=== PATIENT | female | born 1940 | race Caucasian/White ===

== ENCOUNTER → 2023-10-12 11:21 | Outpatient (REF) | payer MEDICARE, BC, SELFPAY | LOC: HWRAD 11:21 | PROVIDERS: ATTENDING PHYSICIAN Orthopaedic Surgery Hand Surgery; FAMILY PHYSICIAN Family Medicine | DX: M19.019 Primary osteoarthritis, unspecified shoulder (principal) | CPT/HCPCS: 73200 ==

== ENCOUNTER 2023-11-08 08:20 | Inpatient (IN) | payer MEDICARE, BC, SELFPAY ==
--- NOTE | 2023-10-17 11:06 | CM ---
Patient is scheduled for an elective R Reverse TSA on 11/08/23. Spoke with patient prior to surgery via telephone. Patient had a L THR (2021) and R TKR (2013) at . Reintroduced role of Orthopedic Navigator. Patient reports that she lives alone in a
two story home. There are no steps to enter and a flight of steps to the second floor. There is a full bathroom on the entry level manufacturing engineer and patient may stay on the first floor. She currently functions independently. She has a rollator, cane, rolling
walker, hip kit, wheel chair, cpap and shower seat. She had VN services through VN. PCP is Dr. Heri Soni.
Discussed orthopedic program and post surgical plans. Reviewed anticipated length of stay and assistance that she may need at discharge. Explained that goal is for her to return home at discharge. Also reviewed MD follow up and transition to
outpatient therapy. Patient is in agreement with tentative plan. She states that she most likely will not have anyone staying with her but has a neighbor who can come over to help. Encouraged patient to see if her some can stay with her. She will
benefit from VN services. Options and PAC data reviewed; she selects VN.
Patient will complete online education.
Plan: Orthopedic Navigator will be involved in the care of patient after surgery and will reassess discharge needs at that time.
[2023-10-23 08:23] VITALS: BMI 35.5
--- NOTE | 2023-10-23 09:07 | HPS.HSE ---
Family Physician
-
Family Physician: Heri Soni
Chief Complaint
-
Advanced glenohumeral arthritis of the right shoulder.
History of Present Illness
The patient is an 82 year old female presenting today for advanced glenohumeral arthritis of the right shoulder. She previously underwent a right total knee arthro[place] [address] Som Shoemaker and a left total hip arthroplasty in
[address] Jigar Smith due to advanced osteoarthritis. She returns to [facility] today with complaints of significant right shoulder pain and instability secondary to her arthritis. She notes that her current symptoms greatly
interfere with her activities of daily living and are overall impacting her quality of life. She has tried and failed multiple conservative treatment measures in the past for her right shoulder symptoms. These conservative treatment measures include
physician supervised therapeutic exercises, activity modification, corticosteroid injections, medical management with Tylenol and Tramadol, and the application of ice and/or heat. A recent CT scan of the right upper extremity confirmed severe
glenohumeral osteoarthritic changes. She was determined to be in need of a right reverse total shoulder arthroplasty. She will also undergo a left shoulder cortisone injection at the time of her arthroplasty. She denies any current complaints today
such as chest pain, shortness of breath, palpitations, nausea, vomiting, diarrhea, lightheadedness, dizziness, cough, sore throat, or fever.
Medical History
Past Medical History
Past Medical History: Reports Other
Additional Past Medical History:
1. Osteoarthritis, status post right total knee arthroplasty, 2013, by Dr. Som Shoemaker and left total hip arthroplasty, 2021, by Dr. Jigar Smith.
2. Hyperlipidemia.
3. Right bundle branch block.
4. Mild aortic stenosis.
5. Mild-moderate aortic regurgitation.
6. Mild mitral regurgitation.
7. Mild-moderate tricuspid regurgitation.
8. Heart murmur associated with valvular disease.
9. Orthostatic hypotension after left total hip arthroplasty.
10. Obstructive sleep apnea, compliant with CPAP.
11. 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
12. GERD.
13. Hiatal hernia.
14. Foster's esophagus.
15. Diverticulosis.
16. Cholelithiasis, asymptomatic.
17. Nephrolithiasis, non-obstructive.
18. Chronic low back pain secondary to multilevel degenerative disc disease.
19. Obesity, BMI 35.4.
Past Surgical History: Reports Other
Additional Past Surgical History:
1. Left total hip arthroplasty, 2021, by Dr. Jigar Smith.
2. Right total knee arthroplasty, 2013, by Dr. Som Shoemaker.
3. Right knee arthroscopy.
4. Bilateral carpal tunnel release.
5. Bilateral thumb joint surgery x2.
6. Left bunionectomy.
Social History
Tobacco: Non-smoker
Alcohol: None
Personal:
Living: Alone (in a 2 story home. She reports that a friend and her daughter will both be helping her for a few days after her surgery. )
Family History
Family History: Not pertinent
Allergies / Home Medications
Allergy/Medication List:
Home medications:
1. Acetaminophen 500 mg p.o. twice a day.
2. Ascorbic acid 1000 mg p.o. daily.
3. Calcium, Magnesium, Vitamin D 1 tablet p.o. daily.
4. Centrum Silver 1 tablet p.o. daily.
5. Cyanocobalamin 5000 mcg sublingual daily.
6. Colace 100 mg p.o. at bedtime.
7. Glucosamine 2 capsules p.o. twice a day.
8. Vascepa 2 grams p.o. twice a day.
9. Pantoprazole 40 mg p.o. daily.
10. Probiotic 2 tablets p.o. daily.
11. Simvastatin 20 mg p.o. at bedtime.
12. Tramadol 50 mg p.o. twice a day.
13. PreserVision 1 tablet p.o. daily.
14. Vitamin E 1 capsule p.o. daily.
Allergies: Latex.
Review of Systems
-
A 12 point ROS was completed and negative except as noted: Yes
Physical Exam
Vital Signs
Blood pressure 128/59. Heart rate 65. Respirations 18. Pulse ox 95%.
Height 5 feet, 2 inches. Weight 87.9 kg. BMI 35.4.
Physical Exam
General: Well Developed, Well Nourished and No Apparent Distress
HEENT: NormoCephalic, Moist mucous membranes, Atraumatic and PERRLA
Respiratory: Clear
Cardiac: Regular Rhythm and Murmur
GI: Soft, Non Tender, Non Distended and Other (Obese. )
Musculoskeletal: Other (Bilateral shoulders: limited range of motion with pain in both extremities. Crepitation and weakness throughout. Passive range of motion she is about 100 degrees of forward flexion and abduction on the right and about 115 on
the left. )
Skin: Warm and Dry
Neuro: AO x 3 and Nonfocal/grossly intact
Laboratory Results
-
DIAGNOSTIC STUDIES as of 10/23/2023: White blood cell count 4.9. Hemoglobin 14.4. Platelet count 256,000. Sodium 136. Potassium 3.9. BUN 15. Creatinine 0.7. Glucose 191. Hemoglobin A1c 6.4. Calcium 9.7. AST 29. ALT 18. Albumin 4.4. MRSA screen
negative.
EKG provided by Cardiology.
Echocardiogram 01/11/2023: Normal left ventricular size and systolic function. No regional wall motion abnormalities are seen. LV ejection fraction is 65-70% by Rachel's method of discs. Mild concentric left ventricular hypertrophy. Normal right
ventricular size and function. Mildly thickened mitral valve leaflets with mitral annular calcification. There is adequate mitral leaflet excursion. Mild mitral regurgitation. Calcified, trileaflet aortic valve with peak and mean gradients of 26 and
15 mmHg, respectively. Estimated ALONZO is 1.6 cm2., using an LVOT of 2.0 cm. Mild aortic stenosis. Mild to moderate aortic regurgitation. Tricuspid valve opens normally with mild-moderate eccentric tricuspid regurgitation. Estimated pulmonary artery
pressure of 31 mmHg, assuming a right atrial pressure of 3 mmHg.
Impression/Plan
-
CLEARANCES:
1. Primary medical, Dr. Bela Cadet, cleared.
Primary medical phone number: [phone].
2. Cardiology, Dr. Darshan Bishop, cleared.
3. Dental waived.
IMPRESSION/PLAN:
1. Advanced glenohumeral arthritis of the right shoulder in need of a right reverse total shoulder arthroplasty with Dr. Vimal Reynolds of 11/08/2023. She will also undergo a left shoulder cortisone injection on this date. The benefits and risks of
the procedure have been explained to the patient. The patient understands these risks and wishes to proceed.
2. DVT prophylaxis - Aspirin with bilateral venous compression devices.
3. Orthostatic hypotension after left total hip arthroplasty: Orthostatic vital signs will be monitored during admission. She will be provided with intravenous fluids post-procedure and oral hydration will be highly encouraged. Midodrine will be
ordered if felt indicated.
Patient's phone number: [phone].
Patient's contact (Carline Linda - Daughter): [phone].
[2023-10-23 09:51] LABS: Hematocrit 42.6 % (37.0-47.0); Hemoglobin 14.4 g/dL (12.0-16.0); Mean Corp Hgb Conc. 33.8 g/dL (33.0-37.0); Mean Corpuscular Hgb 32.9 pg (27.0-31.0); Mean Corpuscular Volume 97.3 fL (81.0-99.0); Platelet Count 256 10^3/uL (130-400); Red Blood Cell Count 4.38 10^6/uL (4.20-5.40); Red Cell Dist. Width 11.4 % (11.5-14.5); White Blood Cell Count 4.9 10^3/uL (4.8-10.8)
[2023-10-23 11:25] LABS: ALT (SGPT) 18 U/L (0-35); AST (SGOT) 29 U/L (14-36); Albumin 4.4 g/dl (3.5-5.0); Alkaline Phosphatase 64 U/L (38-126); Blood Urea Nitrogen 15 mg/dl (7-17); Calcium 9.7 mg/dl (8.4-10.2); Carbon Dioxide 22 mmol/L (22-30); Chloride 104 mmol/L (98-107); Estimated Creatinine Clearance 65 ml/min; Glucose 191 mg/dl (70-99); Potassium 3.9 mmol/L (3.5-5.1); Sodium 136 mmol/L (135-145); Total Bilirubin 0.7 mg/dl (0.2-1.3); Total Protein 6.6 g/dl (6.3-8.2); eGFR > 60.00
[2023-10-23 12:15] LABS: Glycohemoglobin (HgbA1c) 6.4 % (4.0-5.6)
[2023-10-23 14:50] VITALS: BMI 35.5
[2023-11-08] VITALS (19 sets, daily range): BP systolic 119–145; BP diastolic 52–98; PULSE 100–109
[2023-11-08] MEDS: NORMOSOL-R 1000 IV ×2 (08:35→15:34)
[2023-11-08] MEDS: CELEBREX 200 MG PO (08:49)
[2023-11-08 13:05] LABS: Glucose - Point of Care 123 mg/dl (70-99)
[2023-11-08] MEDS: DILAUDID 0.25 MG IV ×2 (13:11→13:42)
--- NOTE | 2023-11-08 14:58 | W.PN.UPDATE ---
Update Note
Progress Note Update
Advanced glenohumeral OA of the R shoulder s/p R Reverse TSA and L shoulder cortisone injection w/ Dr Reynolds 11/08/23
DVT prophylaxis - ASA, b/l venous foot pumps
Orthostatic hypotension after left total hip arthroplasty - monitor orthostatics q8h
- IVF running
- Consider Midodrine
- Minimize opioids as able
Obstructive sleep apnea, compliant with CPAP - monitor O2
- IS
- Resume CPAP HS
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
- SSI AC
- Consider Gabapentin or Lyrica for neuropathic pain
GERD, Hiatal hernia, and Foster's esophagus - continue Protonix
Osteoarthritis, status post R TKA, 2013, by Dr Shoemaker and L VLAD, 2021, by Dr Smith
Hyperlipidemia
Right bundle branch block
Mild aortic stenosis
Mild-moderate aortic regurgitation
Mild mitral regurgitation
Mild-moderate tricuspid regurgitation
Heart murmur associated with valvular disease
Diverticulosis
Cholelithiasis, asymptomatic
Nephrolithiasis, non-obstructive
Chronic low back pain secondary to multilevel degenerative disc disease
Obesity, BMI 35.4
--- NOTE | 2023-11-08 15:39 | SUR.PHASEI ---
patient comfortable in pacu - awaiting available ortho room. vss, no pain, sleeps if undisturbed, nasal O2 on and with that - patient's sats remain 92- 95%. Patient does have CPAP with her.
--- NOTE | 2023-11-08 16:26 | PTCARENOTE ---
Pt arrived to 2S in bed. Full assessment completed. IVF infusing per order. RUE NWB maintained in sling, pt verbalized understanding. Pt with urge to urinate, assisted to the bathroom via nursing staff, gait steady. R thumb numb, neurovascular
assessment otherwise WDL. Bed locked and in the lowest position, safety maintained. Oriented to room and call ventura.
[2023-11-08 16:37] LABS: Glucose - Point of Care 164 mg/dl (70-99)
[2023-11-08] MEDS: FLORASTOR 250 MG PO (17:04)
[2023-11-08] MEDS: ASPIRIN 325 MG PO (17:04)
[2023-11-08] MEDS: VITAMIN C 1000 MG PO (17:04)
[2023-11-08] MEDS: TYLENOL 650 MG PO ×3 (17:04→23:19)
[2023-11-08] MEDS: PROTONIX 40 MG PO (17:05)
[2023-11-08] MEDS: ANCEF 5 IV (17:05)
[2023-11-08] MEDS: NOVOLOG FLEXPEN-MODERATE RESISTANCE 1 UNITS SC (17:06)
[2023-11-08] MEDS: SENOKOT 17.1999999999999993 MG PO (20:30)
[2023-11-08] MEDS: COLACE 100 MG PO (20:30)
[2023-11-08] MEDS: BACTROBAN 2% OINTMENT 1 APPLIC NASAL (20:31)
[2023-11-08] MEDS: LIPITOR 10 MG PO (21:06)
[2023-11-08 21:35] LABS: Glucose - Point of Care 180 mg/dl (70-99)
[2023-11-09 00:24] VITALS: BP 129/67; BP 147/80; BP 147/89; PULSE 111; PULSE 83; PULSE 97
[2023-11-09] MEDS: ANCEF 5 IV (01:39)
[2023-11-09 03:00] VITALS: BP 132/69
[2023-11-09] MEDS: TYLENOL 650 MG PO ×3 (04:13→12:04)
[2023-11-09 08:00] VITALS: BMI 35.5
[2023-11-09] MEDS: SENOKOT 17.1999999999999993 MG PO (08:04)
[2023-11-09] MEDS: PROTONIX 40 MG PO (08:04)
[2023-11-09] MEDS: ASPIRIN 325 MG PO (08:04)
[2023-11-09] MEDS: BACTROBAN 2% OINTMENT 1 APPLIC NASAL (08:04)
[2023-11-09] MEDS: FLORASTOR 250 MG PO (08:04)
[2023-11-09] MEDS: COLACE 100 MG PO (08:04)
[2023-11-09] MEDS: VITAMIN C 1000 MG PO (08:04)
[2023-11-09] MEDS: CELEBREX 200 MG PO (08:13)
[2023-11-09 08:35] LABS: Glucose - Point of Care 129 mg/dl (70-99)
[2023-11-09 08:39] VITALS: BP 129/70; BP 141/52; PULSE 72; PULSE 82
[2023-11-09] MEDS: NOVOLOG FLEXPEN-MODERATE RESISTANCE SC ×2 (08:52→11:59)
--- NOTE | 2023-11-09 09:05 | CM ---
Addendum entered by Shawna Awad 11/09/23 11:54:
Patient did well in therapy. Her daughter was present for part of her OT session. Discharge plans were reviewed and neither have concerns about patient going home.
Original Note:
Reviewed chart and held rounds with OT and nursing. Patient admitted as planned for elective R Reverse TSA. Met with patient at bedside. Confirmed information previously obtained for assessment. Also discussed discharge plans. The plan is for
patient to return home at discharge. Her daughter will be staying with her tonight and then a friend will stay with her for a few days. Reviewed VN services including start of care (tentatively 11/09), services to be ordered (OT, SN, FIRER LOW PRESSURE) and
frequency/duration of services. Options list provided and PAC data reviewed. Patient selects VN.
VN referral was completed and sent to [facility] through [employer] with request for start of care on 11/09. Confirmation received of their ability to accept case. license clerk to fax discharge instructions to VN when complete.
Patient will use [facility] for discharge prescriptions.
[2023-11-09] MEDS: ROXICODONE 5 MG PO (09:42)
--- NOTE | 2023-11-09 10:34 | W.PN.ORTHO ---
Today's Communication / Plan
-
Await OT recs.
D/c later today if remaining clinically stable.
Assessment
.
Distal Motor Intact: Yes
Dressing:
Clean, dry and intact.
Assessment:
Advanced glenohumeral OA of the R shoulder s/p R Reverse TSA and L shoulder cortisone injection w/ Dr Reynolds 11/08/23
DVT prophylaxis - ASA, b/l venous foot pumps
Orthostatic hypotension after left total hip arthroplasty - orthostatics q8h stable
- s/p IVF
- Thankfully no indication for Midodrine
- Continue to minimize opioids as able
Obstructive sleep apnea, compliant with CPAP - O2 stable on RA
- IS
- Resumed CPAP HS
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
- Consider Gabapentin or Lyrica for neuropathic pain
GERD, Hiatal hernia, and Foster's esophagus - continue Protonix
Osteoarthritis, status post R TKA, 2013, by Dr Shoemaker and L VLAD, 2021, by Dr Smith
Hyperlipidemia
Right bundle branch block
Mild aortic stenosis
Mild-moderate aortic regurgitation
Mild mitral regurgitation
Mild-moderate tricuspid regurgitation
Heart murmur associated with valvular disease
Diverticulosis
Cholelithiasis, asymptomatic
Nephrolithiasis, non-obstructive
Chronic low back pain secondary to multilevel degenerative disc disease
Obesity, BMI 35.4
Plan
.
Surgery / Date: R Reverse TSA w/ Dr Reynolds 11/08/23
DVT Prophylaxis: Aspirin
Activity:
Out of bed.
PT/OT
Discharge Plan: Home w/ VN
Subjective
.
.:
Patient resting comfortably in her chair.
R shoulder pain minimal w/ current pain meds.
Denies any new significant complaints.
Vital Signs and Labs
.
Vital Signs and Labs:
Lab Results
10/23/23 08:28
10/23/23 08:28
Temp Pulse Resp BP Pulse Ox
97.9 F 72 18 129/70 93
11/09/23 08:39 11/09/23 08:39 11/09/23 08:39 11/09/23 08:39 11/09/23 08:39
Non-invasive Hgb result: 15.5
Physical Exam
-
HEENT: No pallor, cyanosis, or jaundice. Throat clear.
NECK: Supple. No JVD.
RESPIRATORY: Lungs clear to auscultation.
CVS: S1, S2 normal. RRR.�
ABDOMEN: Soft, non-tender. No distension. Obese.
EXTREMITIES: + RUE sling. Able to wiggle fingers b/l. Good boiler blower b/l. Strength equal, no calf pain with palpation/dorsiflexion. Calves soft.
DATA ENTRY ANALYST: AOx3. No focal deficits. shirt folding machine operator grossly intact
[2023-11-09] MEDS: VITAMIN B-12 5000 MCG PO (10:58)
[2023-11-09 11:44] LABS: Glucose - Point of Care 115 mg/dl (70-99)
[2023-11-09 11:51] VITALS: BP 134/65; PULSE 71; O2SAT 94
--- NOTE | 2023-11-09 12:37 | W.DS.TRANS ---
DC Summary - [place]
-
Discharge Instructions:
Discharge Diagnosis/Procedures Advanced glenohumeral OA of the R shoulder s/p R
Reverse TSA and L shoulder cortisone injection
w/ Dr Reynolds 11/08/23
Diet Diabetic, Carb Controlled
Activity As tolerated
Additional Activity Non-weightbearing right upper extremity
Driving Restrictions Not until seen by your Dr
Bathing Restrictions OK to shower in 72 hours
Other Services VN,OT
Instructions:
Stand-Alone Forms: Total Shoulder Replacement D/C
Changes to Home Medications: Yes
Discharge Medications:
DC Medications w/original date entered in [employer]
ascorbic acid (vitamin C) 500 mg tablet (Vitamin C) 1,000 mg PO DAILY Supplement ##0 11/19/13
okpmbwns-osg-orels acid 0.4 mg-lycopene 300 mcg-lutein 250 mcg tablet (Centrum Silver) 1 ea PO DAILY Supplement ##0 11/19/13
Bacillus coagulans 2 billion cell-vitamin D3 5 mcg chewable tablet (Probiotic (with Vitamin D3)) 2 ea PO DAILY Gastrointestinal issue 06/04/21
Calcium Magnesium + D 1 tab PO DAILY 10/18/23
cyanocobalamin (vitamin B-12) 5,000 mcg sublingual tablet (Vitamin B-12) 5,000 mcg sublingual DAILY 10/18/23
xddnjslhuzm-heg-lvlieduxp-vitC capsule (Glucosamine Complex-MSM capsule) 2 cap PO BID 10/18/23
icosapent ethyl 1 gram capsule (Vascepa) 2 g PO BID 10/18/23
pantoprazole 40 mg tablet,delayed release 40 mg PO DAILY 10/18/23
simvastatin 20 mg tablet 20 mg PO HS 10/18/23
vit C 250 mg-vit E 90 mg-zinc 40 mg-copper 1 eg-cyrzco-dgpqjd capsule (PreserVision AREDS-2) 1 tab PO DAILY 10/18/23
vitamin E 1 cap PO DAILY 10/18/23
mupirocin 2 % topical ointment 1 applic intranasal BID #1 tube 10/23/23
acetaminophen 500 mg tablet (Tylenol Extra Strength) 1,000 mg (2 x 500 mg) PO Q6H #60 tabs 11/09/23
aspirin 325 mg tablet 325 mg PO DAILY #30 tabs 11/09/23
celecoxib 200 mg capsule 200 mg PO DAILY #14 caps 11/09/23
docusate sodium 100 mg capsule 100 mg PO BID #30 caps 11/09/23
doxycycline monohydrate 100 mg capsule 100 mg PO BID #7 caps 11/09/23
ondansetron HCl 4 mg tablet 4 mg PO Q6H PRN nausea and vomiting #30 tabs 11/09/23
oxycodone 5 mg tablet 5 - 10 mg (1 - 2 x 5 mg) PO Q6H PRN moderate-severe pain #30 tabs 11/09/23
sennosides 8.6 mg tablet (Senna Laxative) 17.2 mg (2 x 8.6 mg) PO BID #30 tabs 11/09/23
Home Medication Changes
acetaminophen 500 mg tablet (Tylenol Extra Strength) 1,000 mg (2 x 500 mg) PO Q6H #60 tabs 11/09/23
aspirin 325 mg tablet 325 mg PO DAILY #30 tabs 11/09/23
celecoxib 200 mg capsule 200 mg PO DAILY #14 caps 11/09/23
docusate sodium 100 mg capsule 100 mg PO BID #30 caps 11/09/23
doxycycline monohydrate 100 mg capsule 100 mg PO BID #7 caps 11/09/23
ondansetron HCl 4 mg tablet 4 mg PO Q6H PRN nausea and vomiting #30 tabs 11/09/23
oxycodone 5 mg tablet 5 - 10 mg (1 - 2 x 5 mg) PO Q6H PRN moderate-severe pain #30 tabs 11/09/23
sennosides 8.6 mg tablet (Senna Laxative) 17.2 mg (2 x 8.6 mg) PO BID #30 tabs 11/09/23
Pending Results: No
[2023-11-09 14:04] VITALS: BP 127/65
== END 2023-11-09 14:24 | disposition home health service (06) | DRG 483 ==
LOC: 2 SOUTH 08:20
PROVIDERS: ADMITTING PHYSICIAN Orthopaedic Surgery Hand Surgery; FAMILY PHYSICIAN Family Medicine
PROC: 0RPJ0JZ Removal of Synthetic Substitute from Right Shoulder Joint, Open Approach (ICD-10-PCS; 2023-11-08)
PROC: 3E0U33Z Introduction of Anti-inflammatory into Joints, Percutaneous Approach (ICD-10-PCS; 2023-11-08)
PROC: 0RRJ0JZ Replacement of Right Shoulder Joint with Synthetic Substitute, Open Approach (ICD-10-PCS; 2023-11-08)
DX: M19.011 Primary osteoarthritis, right shoulder (principal); I95.1 Orthostatic hypotension; Z96.642 Presence of left artificial hip joint; G47.33 Obstructive sleep apnea (adult) (pediatric); E66.9 Obesity, unspecified; Z68.35 Body mass index [BMI] 35.0-35.9, adult
CPT/HCPCS: 36415; 73020; 80053; 82962; 83036; 85027; 87070; 97110; 97167; 97535; C1713; C1776

== ENCOUNTER 2023-12-18 16:03 | Outpatient (RCR) | payer MEDICARE, BC, SELFPAY | END 2023-12-18 23:59 | disposition home or self-care (01) | LOC: RPT 16:03 | PROVIDERS: ATTENDING PHYSICIAN Physician Assistant Surgical; FAMILY PHYSICIAN Family Medicine | DX: Z47.1 Aftercare following joint replacement surgery (principal); Z96.611 Presence of right artificial shoulder joint; M25.511 Pain in right shoulder; Z73.6 Limitation of activities due to disability | CPT/HCPCS: 97010; 97110; 97140; 97162 ==

== ENCOUNTER → 2024-01-19 16:17 | Outpatient (REF) | payer MEDICARE, BC, SELFPAY | LOC: RAD 16:17 | PROVIDERS: ATTENDING PHYSICIAN Podiatrist Foot & Ankle Surgery; FAMILY PHYSICIAN Family Medicine | DX: M19.071 Primary osteoarthritis, right ankle and foot (principal); M14.672 Charcot's joint, left ankle and foot; M19.072 Primary osteoarthritis, left ankle and foot; M14.671 Charcot's joint, right ankle and foot | CPT/HCPCS: 73630 ==

== ENCOUNTER 2024-01-23 15:00 | Outpatient (RCR) | payer MEDICARE, BC, SELFPAY | END 2024-01-23 23:59 | disposition home or self-care (01) | LOC: RPT 15:00 | PROVIDERS: ATTENDING PHYSICIAN Physician Assistant Surgical; FAMILY PHYSICIAN Family Medicine | DX: Z47.1 Aftercare following joint replacement surgery (principal); Z96.611 Presence of right artificial shoulder joint; M25.511 Pain in right shoulder; Z73.6 Limitation of activities due to disability | CPT/HCPCS: 97010; 97110; 97140 ==

== ENCOUNTER 2024-02-23 12:56 | Outpatient (RCR) | payer MEDICARE, BC, SELFPAY | END 2024-02-23 23:59 | disposition home or self-care (01) | LOC: RPT 12:56 | PROVIDERS: ATTENDING PHYSICIAN Physician Assistant Surgical; FAMILY PHYSICIAN Family Medicine | DX: Z47.1 Aftercare following joint replacement surgery (principal); Z96.611 Presence of right artificial shoulder joint; M25.511 Pain in right shoulder; Z73.6 Limitation of activities due to disability | CPT/HCPCS: 97010; 97110; 97112; 97140 ==

== ENCOUNTER 2024-03-21 13:49 | Outpatient (RCR) | payer MEDICARE, BC, SELFPAY | END 2024-03-21 23:59 | disposition home or self-care (01) | LOC: RPT 13:49 | PROVIDERS: ATTENDING PHYSICIAN Physician Assistant Surgical; FAMILY PHYSICIAN Family Medicine | DX: Z47.1 Aftercare following joint replacement surgery (principal); M25.511 Pain in right shoulder; Z73.6 Limitation of activities due to disability; Z96.611 Presence of right artificial shoulder joint | CPT/HCPCS: 97010; 97110; 97112; 97530 ==

== ENCOUNTER 2024-06-24 14:24 | Outpatient (RCR) | payer MEDICARE, BC, SELFPAY | END 2024-06-24 23:59 | disposition home or self-care (01) | LOC: RPT 14:24 | PROVIDERS: ATTENDING PHYSICIAN Podiatrist Foot & Ankle Surgery; FAMILY PHYSICIAN Family Medicine | DX: M25.571 Pain in right ankle and joints of right foot (principal); M67.971 Unspecified disorder of synovium and tendon, right ankle and foot; M19.071 Primary osteoarthritis, right ankle and foot; R26.89 Other abnormalities of gait and mobility; Z73.6 Limitation of activities due to disability; R26.2 Difficulty in walking, not elsewhere classified; M25.572 Pain in left ankle and joints of left foot | CPT/HCPCS: 97010; 97110; 97140; 97162 ==

== ENCOUNTER → 2024-07-18 15:40 | Outpatient (REF) | payer MEDICARE, BC, SELFPAY | LOC: HWRAD 15:40 | PROVIDERS: ATTENDING PHYSICIAN Podiatrist Foot & Ankle Surgery; FAMILY PHYSICIAN Family Medicine | DX: M19.071 Primary osteoarthritis, right ankle and foot (principal); M19.072 Primary osteoarthritis, left ankle and foot | CPT/HCPCS: 73610 ==

== ENCOUNTER 2024-07-22 14:15 | Outpatient (RCR) | payer MEDICARE, BC, SELFPAY | END 2024-07-22 23:59 | disposition home or self-care (01) | LOC: RPT 14:15 | PROVIDERS: ATTENDING PHYSICIAN Podiatrist Foot & Ankle Surgery; FAMILY PHYSICIAN Family Medicine | DX: M25.571 Pain in right ankle and joints of right foot (principal); M67.971 Unspecified disorder of synovium and tendon, right ankle and foot; M19.071 Primary osteoarthritis, right ankle and foot; R26.89 Other abnormalities of gait and mobility; Z73.6 Limitation of activities due to disability; R26.2 Difficulty in walking, not elsewhere classified; M25.572 Pain in left ankle and joints of left foot | CPT/HCPCS: 73610; 97110; 97112; 97140 ==

== ENCOUNTER 2024-07-30 15:03 | Outpatient (RCR) | payer MEDICARE, BC, SELFPAY | END 2024-07-31 06:42 | disposition home or self-care (01) | LOC: RPT 15:03 | PROVIDERS: ATTENDING PHYSICIAN Podiatrist Foot & Ankle Surgery; FAMILY PHYSICIAN Family Medicine | DX: M25.571 Pain in right ankle and joints of right foot (principal); M67.971 Unspecified disorder of synovium and tendon, right ankle and foot; M19.071 Primary osteoarthritis, right ankle and foot; R26.89 Other abnormalities of gait and mobility; Z73.6 Limitation of activities due to disability; R26.2 Difficulty in walking, not elsewhere classified; M25.572 Pain in left ankle and joints of left foot | CPT/HCPCS: 97010; 97110; 97140 ==

== ENCOUNTER → 2025-02-17 11:34 | Outpatient (REF) | payer MEDICARE, BC, SELFPAY | LOC: HWRCS 11:34 | PROVIDERS: ATTENDING PHYSICIAN Internal Medicine Cardiovascular Disease; FAMILY PHYSICIAN Family Medicine | DX: I25.10 Atherosclerotic heart disease of native coronary artery without angina pectoris (principal); R06.09 Other forms of dyspnea; I35.0 Nonrheumatic aortic (valve) stenosis | CPT/HCPCS: 93306 ==

== ENCOUNTER → 2025-03-28 13:38 | Outpatient (REF) | payer MEDICARE, BC, SELFPAY | LOC: HWRAD 13:38 | PROVIDERS: ATTENDING PHYSICIAN Family Medicine | DX: R42 Dizziness and giddiness (principal) | CPT/HCPCS: 70450 ==

== ENCOUNTER → 2025-04-17 07:35 | Outpatient (REF) | payer MEDICARE, BC, SELFPAY | LOC: MRI 07:35 | PROVIDERS: ATTENDING PHYSICIAN Family Medicine | DX: R26.9 Unspecified abnormalities of gait and mobility (principal); R41.3 Other amnesia | CPT/HCPCS: 70553; A9575 ==

== ENCOUNTER → 2025-04-25 13:46 | Outpatient (REF) | payer MEDICARE, BC, SELFPAY | LOC: HWRAD 13:46 | PROVIDERS: ATTENDING PHYSICIAN Orthopaedic Surgery Hand Surgery; FAMILY PHYSICIAN Family Medicine | DX: M19.012 Primary osteoarthritis, left shoulder (principal) | CPT/HCPCS: 73200 ==

== ENCOUNTER 2025-04-29 09:27 | Emergency (ER) | payer MEDICARE, BC, SELFPAY ==
[2025-04-29 09:34] VITALS: BP 138/89
--- NOTE | 2025-04-29 09:52 | ED.GENMED ---
History of Present Illness
General
Chief Complaint: Eye Problems
Source: patient
Exam Limitations: none
Time Seen by Provider: 04/29/25 09:45
Nursing documentation reviewed up to this point in time: agreed with
History of Present Illness
History of Present Illness:
84-year-old female with a past medical history as noted presents to the ER for evaluation of right eye pain. Patient reports that this morning she woke up with pain in the right eye and has been constant since that time. She reports sharp pains in
the eyeball itself as well as in the eyelids. She says that she has had increased tearing/watering of the eye. She denies any loss of vision or blurry vision. She denies any trauma to the eye or injury. She denies any other acute complaints; no
symptoms on the left side. She says she has never had similar symptoms in the past.
Past History
Past History
ED Past Medical History: GERD (Hiatal hernia), Hypercholesterolemia, Other (Chronic low back pain/osteoarthritis) and Other (Obstructive sleep apnea)
ED Past Surgical History: Orthopedic (Right total knee replacement 2013, bilateral thumb joint repair, bunionectomy, carpal tunnel release)
Social History
Tobacco: Non-smoker
Alcohol: Occasional
Personal:
Living: with family
Employment: Retired
Family History
Family History: Other (Noncontributory)
Review of Systems
Review of Systems
All Other Systems: ROS reviewed and negative except as documented in HPI and ROS
Constitutional: Denies fever
EENT: Reports other (Pain and tearing in the right eye)
Neurological: Denies headache
Phy Exam
Physical Exam
Physical Exam:
General: Awake, alert, sitting in bed with her right eye closed, nontoxic appearing
Head: Normocephalic, atraumatic
Eyes: Extraocular movements are intact; no foreign body noted; visual acuity: 20/20 left; 20/160 noted on right (patient says that she has a lot of blurriness/tearing which limits assessment); 20/20 both
RIGHT: Conjunctival injection with significant tearing but no discharge noted; pupil is approximately 4 mm and reactive to light, no hyphema or hypopyon; on fluorescein exam patient has central corneal abrasion but no dendritic lesions; negative
Alex sign; eye pressures on the right
LEFT: Conjunctiva normal, pupil is approximately 4 mm and reactive to light, no hyphema or hypopyon; on fluorescein exam patient has no abrasions or dendritic lesions; eye pressures on the left
Throat: Airway intact, handling secretions
Neck: Trachea midline, supple without meningismus
Lungs: Breathing comfortably with no distress, no tachypnea or hypoxia
Heart: Regular rate
Extremities: Warm and well-perfused
Scores
Heart Failure Risk
Heart Failure Risk Score: Not Applicable
Heart Score for Chest Pain Patients
STEMI patient?: Not applicable
Withdrawal Assessment of Alcohol
Withdrawal Assessment Completed?: Not applicable
Course
Orders/Labs/Results
Orders:
Orders
04/29/25 09:46
Visual Acuity- Treatment ONCE
04/29/25 10:20
Ofloxacin [Ocuflox] See Dose Instructions OPHTH ONCE ONE
Vital Signs
Initial and Last Documented VS:
Initial Vital Signs
Temp Pulse Resp BP Pulse Ox
36.8 C 83 16 138/89 97
04/29/25 09:34 04/29/25 09:34 04/29/25 09:34 04/29/25 09:34 04/29/25 09:34
Last Documented Vital Signs
Temp Pulse Resp BP Pulse Ox
36.8 C 64 18 121/70 93
04/29/25 10:14 04/29/25 10:14 04/29/25 10:14 04/29/25 10:14 04/29/25 10:14
MDM/Problems Addressed
Differential Diagnosis Includes:
Shingles, corneal abrasion, conjunctivitis, uveitis, glaucoma
MDM/Problems Addressed:
84-year-old female presents with right eye pain and tearing without vision loss that started this morning when she woke up. Vitals and exam are as above. She has a large corneal abrasion on the right eye, no foreign body noted. She may have
unintentionally poked herself while sleeping. She does not wear contacts or glasses. Plan to treat with antibiotic drops, lubricating drops. She will need to see ophthalmology on an outpatient basis�she is supposed to be scheduled for surgery
with Dr. Reynolds to have her shoulder replaced this week. Advised her to inform surgeon and anesthesiologist about her corneal abrasion. Discussed with ophthalmology�she usually sees Dr. Metcalf, they can see her in the office at 2 PM today.
Stable for discharge.
*Pulse Oximetry
SaO2: 97
Oxygen Mode of Delivery: Room air
Patient hypoxic: no (97%)
*Critical Care Note
Total Time (30-74mins, 75-104mins- exclusive of procedures): Not Applicable
Data Reviewed
Source: patient
ED Attending Note
-
Portions of this chart may have been created with voice recognition software.� Occasional wrong word or��sound alike� substitutions may have occurred due to the inherent limitations of voice recognition software.
Discharge Plan
Departure
Patient Disposition: Home (Routine Discharge)
Date of Disposition: 04/29/25
Time of Disposition: 12:13
Patient with high blood pressure during this ER visit?: No
Discharge Problem:
Corneal abrasion
Instructions: Corneal Abrasion (DC)
Prescriptions:
New
ofloxacin 0.3 % drops
2 drp ophthalmic (eye) QID 5 Days Qty: 10 0RF
artificial tear(dchdq-szg-ylm) 0.1-0.3-0.2 % drops
1 drp ophthalmic (eye) Q1H PRN (Reason: dry eyes) Qty: 15 0RF
No Action
ascorbic acid (vitamin C) [Vitamin C] 500 MG tablet
1,000 mg PO DAILY Qty: 0
Centrum Silver 1 EACH tablet
1 ea PO DAILY Qty: 0
pantoprazole 40 mg Tablet,Delayed Release (Dr/Ec)
40 mg PO DAILY
simvastatin 20 mg Tablet
20 mg PO HS
cyanocobalamin (vitamin B-12) [Vitamin B-12] 5,000 mcg Tablet, Sublingual
5,000 mcg SUBLINGUAL DAILY
PreserVision AREDS-2 250-90-40-1 mg Capsule
1 tab PO DAILY
Calcium Magnesium + D
1 tab PO DAILY
sennosides-docusate sodium [Stool Softener-Laxative] 8.6-50 mg Tablet
1 tab-cap PO HS
acetaminophen [Tylenol Extra Strength] 500 mg tablet
500 - 1,000 mg PO BID
valacyclovir [Valtrex] 500 mg Tablet
500 mg PO DAILY
coenzyme Q10 [CoQ-10] 100 mg Capsule
200 mg PO DAILY
Daily Probiotic 2.5 billion cell Capsule
1 cap PO DAILY
sfijkjvdbgg-vakskdyol-zbm C-Mn [Glucosamine Complex] 500-400 mg Capsule
2 cap PO BID
icosapent ethyl [Vascepa] 1 gram Capsule
2 g PO BID
vitamin E (dl, acetate) 180 mg (400 unit) Capsule
180 mg PO DAILY
oxycodone 5 mg tablet
5 - 10 mg PO Q6H PRN (Reason: moderate-severe pain) Qty: 30 0RF
Rx Instructions:
1 tab for moderate pain, 2 if severe.
Dx total joint.
celecoxib [Celebrex] 200 mg capsule
200 mg PO DAILY Qty: 14 0RF
Rx Instructions:
Take with food post-surgery.
Do NOT take within 2 hours of Aspirin.
doxycycline monohydrate 100 mg capsule
100 mg PO BID Qty: 7 0RF
Rx Instructions:
Start night of discharge and continue twice a day until finished.
Take with probiotic.
ondansetron HCl 4 mg tablet
4 mg PO Q6H PRN (Reason: nausea and vomiting) Qty: 30 0RF
mupirocin 2 % ointment
1 applic intranasal BID Qty: 1 0RF
Referrals:
Julito Villagomez MD [Active, Ophthalmology] - 04/29/25 2:00 pm
Heri Soni MD [Family Provider, Family Practice]
Activity Restrictions/Additional Instructions:
Thank you for visiting the Emergency Department at [facility].
1. Please schedule a follow up appointment as directed. Call first thing tomorrow morning to make an appointment.
2. If indicated, please take your medications as instructed and indicated on discharge paperwork.
3. If any of your symptoms do not improve, or persist, or become more severe within 6-12 hours, please return to the emergency department for further care.
4. Please return to the emergency department if you develop a headache, neck pain/stiffness, fever greater than 100.4F, chest pain, shortness of breath, persistent nausea, vomiting, slurred speech, difficulty walking, numbness/tingling, weakness,
signs of infection or any other symptoms that are worrisome to you.
Please call [phone] if you have any questions.
Interventions
Interventions:
*Risk Screen - Suicide Last Done: 04/29/25 09:34
*General Assessment Last Done: 04/29/25 10:08
*Neglect/Abuse Screening Last Done: 04/29/25 09:34
*ED- Fall Risk Assessment Last Done: 04/29/25 10:08
*ED COVID-19 Vaccine History Last Done: 04/29/25 10:08
*ED Influenza Vaccine History Last Done: 04/29/25 10:08
Discharge Date and Time
Print Language: CAMBODIAN
[2025-04-29 10:08] VITALS: BMI 35.2
[2025-04-29 10:14] VITALS: BP 121/70
[2025-04-29] MEDS: OCUFLOX 2 DROP OPHTH (10:37)
[2025-04-29 12:00] VITALS: BP 125/70
== END 2025-04-29 12:29 | disposition home or self-care (01) ==
LOC: EMR 09:27
PROVIDERS: EMERGENCY PHYSICIAN Emergency Medicine; FAMILY PHYSICIAN Family Medicine
DX: S05.01XA Injury of conjunctiva and corneal abrasion without foreign body, right eye, initial encounter (principal); X58.XXXA Exposure to other specified factors, initial encounter; E78.00 Pure hypercholesterolemia, unspecified; G47.33 Obstructive sleep apnea (adult) (pediatric); K21.9 Gastro-esophageal reflux disease without esophagitis; K44.9 Diaphragmatic hernia without obstruction or gangrene; M47.816 Spondylosis without myelopathy or radiculopathy, lumbar region; Z96.651 Presence of right artificial knee joint
CPT/HCPCS: 99283

== ENCOUNTER 2025-04-30 06:12 | Day surgery (SDC) | payer MEDICARE, BC, SELFPAY ==
--- NOTE | 2025-04-14 09:50 | CM ---
Demographics: confirmed
Living situation: alone, daughter will be driving.
Support Person Post Operatively: daughter
History of
VN: no
SNF: no
Outpatient: [facility]
Has patient purchased required equipment: yes
PCP: Zachariah
Pharmacy: [facility]
Post Operative Discharge Plan: Home with daughter.
[2025-04-22 14:20] VITALS: BMI 34.0
[2025-04-22 14:37] LABS: Hematocrit 43.1 % (37.0-47.0); Hemoglobin 14.9 g/dL (12.0-16.0); Mean Corp Hgb Conc. 34.6 g/dL (33.0-37.0); Mean Corpuscular Volume 98.9 fL (81.0-99.0); Platelet Count 273 10^3/uL (130-400); Red Cell Dist. Width 11.8 % (11.5-14.5)
[2025-04-22 15:06] LABS: ALT (SGPT) 19 U/L (0-35); AST (SGOT) 26 U/L (14-36); Albumin 4.4 g/dl (3.5-5.0); Alkaline Phosphatase 58 U/L (38-126); Blood Urea Nitrogen 9 mg/dl (7-17); Calcium 9.9 mg/dl (8.4-10.2); Carbon Dioxide 30 mmol/L (22-30); Chloride 104 mmol/L (98-107); Estimated Creatinine Clearance 54 ml/min; Glucose 211 mg/dl (70-99); Potassium 4.1 mmol/L (3.5-5.1); Sodium 143 mmol/L (135-145); Total Protein 6.8 g/dl (6.3-8.2); eGFR > 60.00
[2025-04-22 17:41] VITALS: BMI 34.0
[2025-04-23 09:28] LABS: Glycohemoglobin (HgbA1c) 6.2 % (4.0-5.9)
[2025-04-30] VITALS (7 sets, daily range): BP systolic 120–152; BP diastolic 63–71
--- NOTE | 2025-04-30 08:08 | W.DS.TRANS ---
DC Summary - [employer]
-
Discharge Instructions:
Discharge Diagnosis/Procedures L shoulder OA s/p L Reverse TSA w/ Dr Reynolds 11
Diet Regular
Additional Diets Adequate hydration, minimize opioids, and wear
TEDs stockings to prevent low blood pressure/
dizziness.
Activity As tolerated
Additional Activity Non-weightbearing left upper extremity
Driving Restrictions Not until seen by your Dr
Bathing Restrictions OK to shower in 72 hours
Wound Care Leave dressing on until seen by surgeon's office
for follow-up.
Instructions:
Stand-Alone Forms: SDS Total Shoulder D/C Inst.
Changes to Home Medications: Yes
Discharge Medications:
DC Medications w/original date entered in [employer]
ascorbic acid (vitamin C) 500 mg tablet (Vitamin C) 1,000 mg PO DAILY Supplement ##0 11/19/13
bwguaxmr-lqk-gdjqo acid 0.4 mg-lycopene 300 mcg-lutein 250 mcg tablet (Centrum Silver) 1 ea PO DAILY Supplement ##0 11/19/13
Held on 04/30/25. Instructions: Resume on 05/08/25.
Calcium Magnesium + D 1 tab PO DAILY 10/18/23
cyanocobalamin (vitamin B-12) 5,000 mcg sublingual tablet (Vitamin B-12) 5,000 mcg sublingual DAILY 10/18/23
pantoprazole 40 mg tablet,delayed release 40 mg PO DAILY 10/18/23
simvastatin 20 mg tablet 20 mg PO HS 10/18/23
vit C 250 mg-vit E 90 mg-zinc 40 mg-copper 1 ni-ssellx-pogdmi capsule (PreserVision AREDS-2) 1 tab PO DAILY 10/18/23
Held on 04/30/25. Instructions: Resume on 05/08/25.
Lactobacillus acidophilus-Bifidobac.animalis 2.5 billion cell capsule (Daily Probiotic) 1 cap PO DAILY 04/18/25
coenzyme Q10 100 mg capsule (CoQ-10) 200 mg PO DAILY 04/18/25
Held on 04/30/25. Instructions: Resume on 05/08/25.
iticlgkqyqa-qzxvukqdk-jwa C-Mn 500 mg-400 mg capsule 2 cap PO BID 04/18/25
Held on 04/30/25. Instructions: Resume on 05/08/25.
icosapent ethyl 1 gram capsule (Vascepa) 2 g PO BID 04/18/25
Held on 04/30/25. Instructions: Resume on 05/08/25.
valacyclovir 500 mg tablet (Valtrex) 500 mg PO DAILY 04/18/25
vitamin E (dl, acetate) 180 mg (400 unit) capsule 180 mg PO DAILY 04/18/25
Held on 04/30/25. Instructions: Resume on 05/08/25.
celecoxib 200 mg capsule (Celebrex) 200 mg PO DAILY #14 caps 04/22/25
doxycycline monohydrate 100 mg capsule 100 mg PO BID #7 caps 04/22/25
mupirocin 2 % topical ointment 1 applic intranasal BID #1 tube 04/22/25
ondansetron HCl 4 mg tablet 4 mg PO Q6H PRN nausea and vomiting #30 tabs 04/22/25
oxycodone 5 mg tablet 5 - 10 mg (1 - 2 x 5 mg) PO Q6H PRN moderate-severe pain #30 tabs 04/22/25
artificial tears(ygjvrbw-dsflnqae-kkasjrd) 0.1 %-0.3 %-0.2 % eye drops 1 drp ophthalmic (eye) Q1H PRN dry eyes #15 mL 04/29/25
ofloxacin 0.3 % eye drops 2 drp ophthalmic (eye) QID 5 days #10 mL 04/29/25
acetaminophen 500 mg tablet (Tylenol Extra Strength) 1,000 mg (2 x 500 mg) PO QID #0 tabs 04/30/25
aspirin 325 mg tablet 325 mg PO DAILY blood clot prevention #1 tab 04/30/25
docusate sodium 100 mg capsule (Colace) 100 mg PO BID stool softner #1 cap 04/30/25
magnesium hydroxide 400 mg/5 mL oral suspension (Milk of Magnesia) 30 ml PO HS PRN constipation #1 mL 04/30/25
sennosides 8.6 mg-docusate sodium 50 mg tablet (Stool Softener-Laxative) 2 tab-cap (2 x 8.6-50 mg) PO BID laxative #0 tabs 04/30/25
Home Medication Changes
celecoxib 200 mg capsule (Celebrex) 200 mg PO DAILY #14 caps 04/22/25
doxycycline monohydrate 100 mg capsule 100 mg PO BID #7 caps 04/22/25
mupirocin 2 % topical ointment 1 applic intranasal BID #1 tube 04/22/25
ondansetron HCl 4 mg tablet 4 mg PO Q6H PRN nausea and vomiting #30 tabs 04/22/25
oxycodone 5 mg tablet 5 - 10 mg (1 - 2 x 5 mg) PO Q6H PRN moderate-severe pain #30 tabs 04/22/25
artificial tears(flgrdxi-akhmbfpl-grbuexx) 0.1 %-0.3 %-0.2 % eye drops 1 drp ophthalmic (eye) Q1H PRN dry eyes #15 mL 04/29/25
ofloxacin 0.3 % eye drops 2 drp ophthalmic (eye) QID 5 days #10 mL 04/29/25
acetaminophen 500 mg tablet (Tylenol Extra Strength) 1,000 mg (2 x 500 mg) PO QID #0 tabs 04/30/25
aspirin 325 mg tablet 325 mg PO DAILY blood clot prevention #1 tab 04/30/25
docusate sodium 100 mg capsule (Colace) 100 mg PO BID stool softner #1 cap 04/30/25
magnesium hydroxide 400 mg/5 mL oral suspension (Milk of Magnesia) 30 ml PO HS PRN constipation #1 mL 04/30/25
sennosides 8.6 mg-docusate sodium 50 mg tablet (Stool Softener-Laxative) 2 tab-cap (2 x 8.6-50 mg) PO BID laxative #0 tabs 04/30/25
Pending Results: No
[2025-04-30] MEDS: NORMOSOL-R/PLASMALYTE-A 1000 IV (09:29)
[2025-04-30] MEDS: TYLENOL 1000 MG PO (09:29)
[2025-04-30] MEDS: CELEBREX 200 MG PO (09:29)
[2025-04-30] MEDS: ANCEF 5 IV (13:15)
== END 2025-04-30 13:40 | disposition home or self-care (01) ==
LOC: SDS 06:12
PROVIDERS: ATTENDING PHYSICIAN Orthopaedic Surgery Hand Surgery; FAMILY PHYSICIAN Family Medicine; OTHER PHYSICIAN Physician Assistant
DX: M19.012 Primary osteoarthritis, left shoulder (principal); M75.102 Unspecified rotator cuff tear or rupture of left shoulder, not specified as traumatic; X58.XXXA Exposure to other specified factors, initial encounter; Z96.612 Presence of left artificial shoulder joint
CPT/HCPCS: 23472; 36415; 73020; 80053; 83036; 85027; 87070; 93005; C1713; C1776